=== PATIENT | female | born 1940 | race Caucasian/White ===

== ENCOUNTER 2017-03-15 17:36 | Emergency (ER) | payer MEDICARE ==
[~2017-03-15] VITALS: Ht 157.5 cm; Wt 77.1 kg
[~2017-03-15 17:36] MED LIST: ALBU0.63 NEB; ALBU8.5H3 INH; ALBU8.5H5 INH; ALPR0.257 PO; APIX5TAB PO; Alprazolam PO; CEFD300C37 PO; FLUT1DIS3 INH; GUAI-103 PO; GUAI400T26 PO; GUAI600T22 PO; HYDR-3138 PO; HYDR473S55 PO; LEVO150T5 PO; LEVO500T8 PO; LEVO750T26 PO; LEVO75CA2 PO; LISI-170 PO; METH4TAB2 PO; MONT10TA6 PO; NYST1000 PO; POTA20PA PO; PRED10TA PO; PRED20TA PO; PRED50TA PO; PRED5TAB PO; PREG150C PO; PROP10TA NG; RANI300C PO; SIMV40TA3 PO; TIOT18CA INH; WARF5TAB PO; WARF5TAB7 PO; ZOLP10TA3 PO
[2017-03-15] MEDS ORDERED: SODIUM CHLORIDE 0.9% 1,000 ML IV ONE (18:07)
[2017-03-15] MEDS ORDERED: ONDANSETRON 2MG/ML, 2ML IVPush ONE (18:30)
[2017-03-15] MEDS ORDERED: SODIUM CHLORIDE 0.9% 1,000ML IVBOLUS ONE (18:30)
[2017-03-15] MEDS ORDERED: SODIUM CHLORIDE FLUSH 10ML SYR IVF ONE (18:30)
[2017-03-15] MEDS ORDERED: ONDANSETRON 2MG/ML, 2ML ONE (18:39)
[2017-03-15 18:50] LABS: ASPARTATE AMINO TRANSFERASE 19 U/L (15-37); BLOOD UREA NITROGEN 12 mg/dL (7-18)
[2017-03-15 18:55] LABS: IS PT STATUS REG ER OR PRE ER? YES
[2017-03-15 19:45] LABS: PATH.CAST-FLAG NOT PRESENT; SPERM-FLAG NOT PRESENT; SRC-FLAG NOT PRESENT; XTAL-FLAG NOT PRESENT; YLC-FLAG NOT PRESENT
[2017-03-15 20:24] VITALS: BP 127/75
== END 2017-03-15 20:35 | disposition home or self-care (01) ==
LOC: ED 20:00
DX: K85.00 Idiopathic acute pancreatitis without necrosis or infection (principal); R10.13 Epigastric pain; J44.9 Chronic obstructive pulmonary disease, unspecified; K21.9 Gastro-esophageal reflux disease without esophagitis; I11.0 Hypertensive heart disease with heart failure; I50.9 Heart failure, unspecified; E11.9 Type 2 diabetes mellitus without complications; E05.90 Thyrotoxicosis, unspecified without thyrotoxic crisis or storm; Z90.10 Acquired absence of unspecified breast and nipple
CPT/HCPCS: 36415; 74022; 80053; 81001; 82962; 83605; 83690; 84484; 85025; 85610; 87086; 93005; 96361; 96374; 99285; J2405; J7030

== ENCOUNTER 2017-04-23 21:54 | Emergency (ER) | payer MEDICARE ==
[~2017-04-23] VITALS: Ht 157.5 cm; Wt 74.0 kg
[2017-04-23] MEDS ORDERED: HYDROcodone/APAP 5/325 TABLET ONE (22:41)
[2017-04-23] MEDS ORDERED: HYDROcodone/APAP 5/325 TABLET PO ONE (23:00)
[2017-04-23 23:16] VITALS: BP 121/71
== END 2017-04-23 23:18 | disposition home or self-care (01) ==
LOC: ED 22:59
DX: M25.572 Pain in left ankle and joints of left foot (principal); Z90.89 Acquired absence of other organs; E11.9 Type 2 diabetes mellitus without complications; E78.5 Hyperlipidemia, unspecified; I10 Essential (primary) hypertension; Z86.718 Personal history of other venous thrombosis and embolism
CPT/HCPCS: 36415; 85025

== ENCOUNTER 2017-04-29 20:44 | Inpatient (IN) | payer MEDICARE ==
[~2017-04-29] VITALS: Ht 157.5 cm; Wt 82.4 kg
[2017-04-29] MEDS ORDERED: SODIUM CHLORIDE 0.9% 1,000ML IVBOLUS ONE ×2 (22:00→23:00)
[2017-04-29] MEDS ORDERED: ONDANSETRON 2MG/ML, 2ML IVPush ONE ×2 (22:00→23:00)
[2017-04-29] MEDS ORDERED: SODIUM CHLORIDE FLUSH 10ML SYR IVF ONE (22:00)
[2017-04-29 22:04] LABS: ASPARTATE AMINO TRANSFERASE 20 U/L (15-37); BLOOD UREA NITROGEN 19 mg/dL (7-18)
[2017-04-29] MEDS ORDERED: ONDANSETRON 2MG/ML, 2ML ONE (22:53)
[2017-04-29] MEDS ORDERED: MORPHINE SULFATE 4 MG/ML, 1ML IVPush PRN (23:00)
[2017-04-29] MEDS ORDERED: LEVO112T4 PO (23:06)
[2017-04-29] MEDS ORDERED: MORPHINE SULFATE 4 MG/ML, 1ML ONE (23:28)
[2017-04-30] MEDS ORDERED: OMNIPAQUE 350 MG/ML, 100ML BOTTLE ONE (00:16)
[2017-04-30] MEDS ORDERED: SODIUM CHLORIDE 0.9% 1,000 ML IV ONE (02:09)
[2017-04-30] MEDS ORDERED: ONDANSETRON 2MG/ML, 2ML IVPush PRN ×2 (02:30→07:30)
[2017-04-30] MEDS ORDERED: MORPHINE SULFATE 4 MG/ML, 1ML IVPush PRN (02:30)
[2017-04-30 03:17] VITALS: BP 106/46
[2017-04-30] MEDS ORDERED: PROMETHAZINE 25 MG/ML, 1ML IM PRN (07:30)
[2017-04-30] MEDS ORDERED: hydrALAzine 20 MG/ML, 1ML IVPush PRN (07:30)
[2017-04-30] MEDS ORDERED: BISACODYL 10 MG SUPP PR PRN (07:30)
[2017-04-30] MEDS ORDERED: METOCLOPRAMIDE 5 MG/ML, 2ML IVPush PRN (07:30)
[2017-04-30] MEDS ORDERED: ACETAMINOPHEN 325 MG TABLET PO PRN (07:30)
[2017-04-30] MEDS ORDERED: TRAZODONE 50MG TABLET PO PRN (07:30)
[2017-04-30 07:59] VITALS: BP 108/56
[2017-04-30] MEDS ORDERED: LEVOTHYROXINE 112 MCG TABLET PO SCH (09:00)
[2017-04-30] MEDS: MONTELUKAST 10 MG TABLET PO SCH (09:37)
[2017-04-30] MEDS: PREGABALIN 150 MG CAPSULE PO SCH ×2 (09:37→22:19)
[2017-04-30] MEDS: PROPRANOLOL 10 MG TABLET PO SCH ×2 (09:37→21:00)
[2017-04-30] MEDS: morphine SULFATE 10 MG/ML, 1ML IVPush PRN ×3 (11:46→23:52)
[2017-04-30 14:48] VITALS: BP 98/67
[2017-04-30] MEDS: FLUTICASONE/VILANTEROL 100-25MCG/INH INH SCH (15:58)
[2017-04-30] MEDS: POTASSIUM CHLORIDE 20 MEQ in LACTATED RINGERS 1,000 ML IV SCH (15:58)
[2017-04-30] MEDS: HYDROcodone/APAP 5/325 TABLET PO PRN (17:42)
[2017-04-30] MEDS ORDERED: WARFARIN 5 MG TABLET PO-COUM SCH (18:00)
[2017-04-30 19:04] VITALS: BP 98/61
[2017-04-30] MEDS ORDERED: SODIUM CHLORIDE 0.9% 1,000ML IVBOLUS ONE (22:00)
[2017-05-01 02:23] VITALS: BP 118/61
[2017-05-01] MEDS: POTASSIUM CHLORIDE 20 MEQ in LACTATED RINGERS 1,000 ML IV SCH (03:10)
[2017-05-01 05:03] LABS: BLOOD UREA NITROGEN 9 mg/dL (7-18)
[2017-05-01 05:11] LABS: ASPARTATE AMINO TRANSFERASE 16 U/L (15-37)
[2017-05-01 07:21] VITALS: BP 104/66
[2017-05-01] MEDS: PREGABALIN 150 MG CAPSULE PO SCH ×2 (09:47→21:29)
[2017-05-01] MEDS: MONTELUKAST 10 MG TABLET PO SCH (09:47)
[2017-05-01] MEDS: FLUTICASONE/VILANTEROL 100-25MCG/INH INH SCH (09:48)
[2017-05-01] MEDS: PROPRANOLOL 10 MG TABLET PO SCH ×2 (09:48→21:33)
[2017-05-01] MEDS: LEVOTHYROXINE 75 MCG TABLET PO SCH (09:50)
[2017-05-01] MEDS ORDERED: ALBUTEROL SULFATE 2.5 MG/3 ML NPPB PRN (10:30)
[2017-05-01] MEDS ORDERED: ALBUTEROL SULFATE 2.5 MG/3 ML ONE (10:30)
[2017-05-01 13:09] VITALS: BP 94/60
[2017-05-01] MEDS ORDERED: WARFARIN 5 MG TABLET PO-COUM ONE (18:00)
[2017-05-01 19:13] VITALS: BP 122/74
[2017-05-01 21:34] VITALS: BP 121/63
[2017-05-01] MEDS: HYDROcodone/APAP 5/325 TABLET PO PRN (22:42)
[2017-05-02 01:26] VITALS: BP 120/59
[2017-05-02 05:24] LABS: BLOOD UREA NITROGEN 10 mg/dL (7-18)
[2017-05-02] MEDS: HYDROcodone/APAP 5/325 TABLET PO PRN ×3 (05:52→20:40)
[2017-05-02] MEDS: LEVOTHYROXINE 75 MCG TABLET PO SCH (06:10)
[2017-05-02 08:32] VITALS: BP 109/53
[2017-05-02] MEDS: FLUTICASONE/VILANTEROL 100-25MCG/INH INH SCH (08:37)
[2017-05-02] MEDS: PROPRANOLOL 10 MG TABLET PO SCH ×2 (08:39→20:40)
[2017-05-02] MEDS: PREGABALIN 150 MG CAPSULE PO SCH ×2 (08:39→20:40)
[2017-05-02] MEDS: MONTELUKAST 10 MG TABLET PO SCH (08:39)
[2017-05-02 13:33] VITALS: BP 108/72
[2017-05-02] MEDS ORDERED: WARFARIN 5 MG TABLET PO-COUM ONE (15:00)
[2017-05-02] MEDS: SODIUM CHLORIDE 0.9% 1,000 ML IV SCH ×2 (15:29→23:30)
[2017-05-02] MEDS: morphine SULFATE 10 MG/ML, 1ML IVPush PRN (17:44)
[2017-05-02 18:22] VITALS: BP 113/68
[2017-05-03 01:18] VITALS: BP 131/79
[2017-05-03] MEDS: HYDROcodone/APAP 5/325 TABLET PO PRN (05:39)
[2017-05-03] MEDS: LEVOTHYROXINE 75 MCG TABLET PO SCH (05:40)
[2017-05-03 05:59] LABS: BLOOD UREA NITROGEN 9 mg/dL (7-18)
[2017-05-03 06:08] LABS: ASPARTATE AMINO TRANSFERASE 17 U/L (15-37)
[2017-05-03 07:44] VITALS: BP 162/76
[2017-05-03] MEDS: FLUTICASONE/VILANTEROL 100-25MCG/INH INH SCH (08:42)
[2017-05-03] MEDS: PREGABALIN 150 MG CAPSULE PO SCH ×2 (08:42→20:05)
[2017-05-03] MEDS: MONTELUKAST 10 MG TABLET PO SCH (08:42)
[2017-05-03] MEDS: PROPRANOLOL 10 MG TABLET PO SCH ×2 (08:42→20:05)
[2017-05-03] MEDS: SODIUM CHLORIDE 0.9% 1,000 ML IV SCH ×2 (08:42→20:33)
[2017-05-03] MEDS: morphine SULFATE 10 MG/ML, 1ML IVPush PRN ×4 (13:22→20:00)
[2017-05-03] MEDS ORDERED: MORPHINE SULFATE 4 MG/ML, 1ML ONE (13:58)
[2017-05-03 14:21] VITALS: BP 123/65
[2017-05-03] MEDS ORDERED: WARFARIN 2.5 MG TABLET PO-COUM ONE (18:00)
[2017-05-03] MEDS ORDERED: ACETAMINOPHEN 325 MG TABLET PO PRN (19:30)
[2017-05-03] MEDS ORDERED: BISACODYL 10 MG SUPP PR PRN (19:30)
[2017-05-03 20:04] VITALS: BP 160/79
[2017-05-04 02:07] VITALS: BP 126/73
[2017-05-04] MEDS: morphine SULFATE 10 MG/ML, 1ML IVPush PRN ×3 (02:24→12:52)
[2017-05-04] MEDS: SODIUM CHLORIDE 0.9% 1,000 ML IV SCH ×3 (04:20→20:00)
[2017-05-04] MEDS: LEVOTHYROXINE 75 MCG TABLET PO SCH (04:27)
[2017-05-04 06:03] LABS: BLOOD UREA NITROGEN 6 mg/dL (7-18)
[2017-05-04 07:30] VITALS: BP 128/79
[2017-05-04] MEDS: MONTELUKAST 10 MG TABLET PO SCH (09:10)
[2017-05-04] MEDS: FLUTICASONE/VILANTEROL 100-25MCG/INH INH SCH (09:10)
[2017-05-04] MEDS: PREGABALIN 150 MG CAPSULE PO SCH ×2 (09:10→21:36)
[2017-05-04] MEDS: PROPRANOLOL 10 MG TABLET PO SCH ×2 (09:10→21:36)
[2017-05-04 12:33] VITALS: BP 118/81
[2017-05-04] MEDS ORDERED: WARFARIN 2.5 MG TABLET PO-COUM SCH (18:00)
[2017-05-04] MEDS: HYDROcodone/APAP 10/325 MG TABLET PO PRN (18:02)
[2017-05-04 20:00] VITALS: BP 113/56
[2017-05-04 21:37] VITALS: BP 120/66
[2017-05-05] MEDS: HYDROcodone/APAP 10/325 MG TABLET PO PRN ×4 (01:15→22:46)
[2017-05-05 02:27] VITALS: BP 124/65
[2017-05-05] MEDS: SODIUM CHLORIDE 0.9% 1,000 ML IV SCH ×3 (04:00→20:00)
[2017-05-05 05:58] LABS: BLOOD UREA NITROGEN 7 mg/dL (7-18)
[2017-05-05] MEDS: LEVOTHYROXINE 75 MCG TABLET PO SCH (06:04)
[2017-05-05 08:27] VITALS: BP 111/71
[2017-05-05] MEDS: MONTELUKAST 10 MG TABLET PO SCH (09:37)
[2017-05-05] MEDS: PREGABALIN 150 MG CAPSULE PO SCH ×2 (09:37→22:46)
[2017-05-05] MEDS: PROPRANOLOL 10 MG TABLET PO SCH ×2 (09:37→22:46)
[2017-05-05] MEDS: FLUTICASONE/VILANTEROL 100-25MCG/INH INH SCH (09:37)
[2017-05-05 13:02] VITALS: BP 100/59
[2017-05-05 20:00] VITALS: BP 118/79
[2017-05-06 01:47] VITALS: BP 110/71
[2017-05-06] MEDS: SODIUM CHLORIDE 0.9% 1,000 ML IV SCH ×3 (04:00→20:00)
[2017-05-06] MEDS: LEVOTHYROXINE 75 MCG TABLET PO SCH (06:29)
[2017-05-06 08:37] VITALS: BP 114/64
[2017-05-06] MEDS: FLUTICASONE/VILANTEROL 100-25MCG/INH INH SCH (09:53)
[2017-05-06] MEDS: MONTELUKAST 10 MG TABLET PO SCH (09:53)
[2017-05-06] MEDS: PROPRANOLOL 10 MG TABLET PO SCH ×2 (09:53→20:40)
[2017-05-06] MEDS: PREGABALIN 150 MG CAPSULE PO SCH ×2 (09:53→20:41)
[2017-05-06] MEDS: HYDROcodone/APAP 10/325 MG TABLET PO PRN ×3 (09:54→18:25)
[2017-05-06 13:25] VITALS: BP 102/69
[2017-05-06] MEDS ORDERED: WARFARIN 3 MG TABLET PO-COUM ONE (18:00)
[2017-05-06 19:09] VITALS: BP 91/54
[2017-05-07 00:56] VITALS: BP 91/50
[2017-05-07] MEDS: SODIUM CHLORIDE 0.9% 1,000 ML IV SCH (04:00)
[2017-05-07] MEDS: LEVOTHYROXINE 75 MCG TABLET PO SCH (06:11)
[2017-05-07] MEDS: HYDROcodone/APAP 10/325 MG TABLET PO PRN (06:12)
[2017-05-07 08:10] VITALS: BP 115/69
[2017-05-07] MEDS: FLUTICASONE/VILANTEROL 100-25MCG/INH INH SCH (08:42)
[2017-05-07] MEDS: PREGABALIN 150 MG CAPSULE PO SCH (08:43)
[2017-05-07] MEDS: PROPRANOLOL 10 MG TABLET PO SCH (08:43)
[2017-05-07] MEDS: MONTELUKAST 10 MG TABLET PO SCH (08:43)
[2017-05-07] MEDS ORDERED: LEVO75TA PO (10:47)
[2017-05-07 12:48] VITALS: BP 116/74
[2017-05-07] MEDS ORDERED: WARF5TAB7 PO (13:46)
[2017-05-07] MEDS ORDERED: WARF2TAB7 PO (13:47)
[2017-05-07] MEDS ORDERED: WARFARIN 2 MG TABLET PO-COUM SCH (18:00)
== END 2017-05-07 13:56 | disposition home or self-care (01) | DRG 438 ==
LOC: ED 22:26 → EDIP 04-30 02:09 → 4NOR 04-30 03:25 → DCLOUNGE 05-07 13:35
PROVIDERS: ADMIT Internal Medicine; ATTEND Family Medicine
DX: K85.90 Acute pancreatitis without necrosis or infection, unspecified (principal); E43 Unspecified severe protein-calorie malnutrition; D68.59 Other primary thrombophilia; E03.9 Hypothyroidism, unspecified; E11.9 Type 2 diabetes mellitus without complications; E78.5 Hyperlipidemia, unspecified; F41.1 Generalized anxiety disorder; I11.0 Hypertensive heart disease with heart failure; I50.9 Heart failure, unspecified; J44.9 Chronic obstructive pulmonary disease, unspecified; K21.9 Gastro-esophageal reflux disease without esophagitis; K57.90 Diverticulosis of intestine, part unspecified, without perforation or abscess without bleeding; G89.29 Other chronic pain; R09.02 Hypoxemia; M79.7 Fibromyalgia; Z79.01 Long term (current) use of anticoagulants; Z86.711 Personal history of pulmonary embolism; Z86.718 Personal history of other venous thrombosis and embolism; Z68.33 Body mass index [BMI] 33.0-33.9, adult; Z88.0 Allergy status to penicillin; Z87.01 Personal history of pneumonia (recurrent); Z90.49 Acquired absence of other specified parts of digestive tract; Z90.89 Acquired absence of other organs; Z90.12 Acquired absence of left breast and nipple; Z79.899 Other long term (current) drug therapy; Z79.51 Long term (current) use of inhaled steroids; I25.2 Old myocardial infarction; Z87.440 Personal history of urinary (tract) infections
CPT/HCPCS: 36415; 71020; 74177; 74181; 76700; 80048; 80053; 80061; 81003; 82150; 82962; 83690; 83735; 84100; 84439; 84443; 85025; 85610; 93005; 94640; 96361; 96374; 96375; J2405; J3480; J7613; Q9967; J2270; J7030; J7120

== ENCOUNTER 2017-08-26 03:50 | Emergency (ER) | payer MEDICARE ==
[~2017-08-26] VITALS: Ht 157.5 cm; Wt 78.7 kg
[~2017-08-26 03:50] MED LIST changes: -ALBU8.5H3 INH; +ALBU8.5H8 INH; -GUAI400T26 PO; +GUAI400T66 PO; -GUAI600T22 PO; +GUAI600T31 PO; -HYDR-3138 PO; +HYDR-3237 PO; +LEVO112T4 PO; +LEVO75TA PO; +WARF2TAB7 PO
[2017-08-26] MEDS ORDERED: ONDANSETRON ODT 4 MG ONE (04:14)
[2017-08-26] MEDS ORDERED: ONDANSETRON ODT 4 MG PO ONE (04:30)
[2017-08-26 05:37] VITALS: BP 103/53
== END 2017-08-26 05:39 | disposition home or self-care (01) ==
LOC: ED 05:33
DX: S06.0X0A Concussion without loss of consciousness, initial encounter (principal); E03.9 Hypothyroidism, unspecified; I11.0 Hypertensive heart disease with heart failure; I50.9 Heart failure, unspecified; E11.9 Type 2 diabetes mellitus without complications; E78.5 Hyperlipidemia, unspecified; J44.9 Chronic obstructive pulmonary disease, unspecified; K21.9 Gastro-esophageal reflux disease without esophagitis; M79.7 Fibromyalgia; W22.8XXA Striking against or struck by other objects, initial encounter; Y93.89 Activity, other specified; Y92.098 Other place in other non-institutional residence as the place of occurrence of the external cause; Y99.8 Other external cause status; Z86.718 Personal history of other venous thrombosis and embolism
CPT/HCPCS: 36415; 70450; 85610; 99285; Q0162

== ENCOUNTER 2018-01-03 19:46 | Inpatient (IN) | payer MEDICARE ==
[~2018-01-03] VITALS: Ht 154.9 cm; Wt 83.1 kg
[~2018-01-03 19:46] MED LIST changes: +WARF-36 PO; -WARF5TAB7 PO
[2018-01-03] MEDS ORDERED: SODIUM CHLORIDE FLUSH 10ML SYR IVF ONE ×2 (21:00→22:00)
[2018-01-03] MEDS: ALBUTEROL/IPRATROPIUM 2.5MG/0.5MG, 3 ML NPPB SCH ×3 (21:05→23:00)
[2018-01-03] MEDS ORDERED: ALBUTEROL/IPRATROPIUM 2.5MG/0.5MG, 3 ML ONE ×2 (21:05→23:05)
[2018-01-03 21:06] LABS: BASOPHILS # (AUTO) 0.04 x10^3/uL (0-0.1); BASOPHILS % (AUTO) 1 % (0-1); EOSINOPHILS # (AUTO) 0.03 x10^3/uL (0-0.4); EOSINOPHILS % (AUTO) 1 % (1-7); LYMPHOCYTES # (AUTO) 2.15 x10^3/uL (1-3.4); LYMPHOCYTES % (AUTO) 44 % (22-44); MD NO; MEAN CORPUSCULAR HEMOGLOBIN 27.4 pg (27.0-34.8); MEAN CORPUSCULAR HGB CONC 32.9 g/dL (32.4-35.8); MEAN CORPUSCULAR VOLUME 83.1 fL (80-100); MEAN PLATELET VOLUME 9.3 fL (7.4-10.4); MONOCYTES # (AUTO) 0.49 x10^3/uL (0.2-0.8); MONOCYTES % (AUTO) 10 % (2-9); NEUTROPHILS # (AUTO) 2.24 x10^3/uL (1.8-6.8); NEUTROPHILS % (AUTO) 45 % (42-75); PLATELET COUNT 196 x10^3/uL (130-400); RED BLOOD COUNT 4.84 x10^6/uL (3.82-5.3); RED CELL DISTRIBUTION WIDTH 17.5 % (9.6-15.2)
[2018-01-03 21:18] LABS: ALANINE AMINOTRANSFERASE 36 U/L (12-78); ALBUMIN 3.3 g/dL (3.4-5.0); ANION GAP 9 mmol/L (5-15); CALCIUM 8.5 mg/dL (8.5-10.1); CHLORIDE 107 mmol/L (98-107)
[2018-01-03 21:23] LABS: ALKALINE PHOSPHATASE 88 U/L (45-117); BILIRUBIN,TOTAL 0.3 mg/dL (0.2-1.0); TOTAL PROTEIN 6.7 g/dL (6.4-8.2); TROPONIN I < 0.015 ng/mL (0.000-0.045)
[2018-01-03] MEDS ORDERED: AZITHROMYCIN 500 MG in SODIUM CHLORIDE 0.9% 250 ML IVPB ONE (22:00)
[2018-01-03] MEDS ORDERED: CEFTRIAXONE PMX 1GM/50ML 50 ML IVPB ONE (22:00)
[2018-01-03] MEDS ORDERED: LEVO50TA5 PO (22:20)
[2018-01-03] MEDS ORDERED: SODIUM CHLORIDE 0.9% 1,000 ML IV SCH (22:37)
[2018-01-03] MEDS ORDERED: ONDANSETRON 2MG/ML, 2ML IVPush PRN (23:00)
[2018-01-03] MEDS ORDERED: TEMPLATE NON-FORMULARY MED. (Albuterol Sulfate** (Albuterol Sulfate Hfa**) 2 PUFF(S)) INH PRN (23:00)
[2018-01-03] MEDS: ENOXAPARIN 40 MG/0.4 ML SQ SCH (23:00)
[2018-01-03] MEDS ORDERED: ALBUTEROL SULFATE 2.5 MG/3 ML NPPB PRN (23:00)
[2018-01-03] MEDS: methylPREDNISolone SOD SUCC 40 MG/ML IV SCH (23:00)
[2018-01-03] MEDS ORDERED: ACETAMINOPHEN 325 MG TABLET PO PRN (23:00)
[2018-01-03] MEDS ORDERED: CEFTRIAXONE PMX 1GM/50ML 50 ML ONE (23:03)
[2018-01-03 23:36] LABS: INTERNATIONAL NORMALIZED RATIO 1.94 (0.93-1.1); PROTHROMBIN TIME 19.9 Seconds (9.6-11.5)
[2018-01-04 01:07] VITALS: BP 104/62
[2018-01-04] MEDS: GUAIFENESIN 200 MG TABLET PO SCH ×5 (01:29→20:44)
[2018-01-04] MEDS ORDERED: WARFARIN 2.5 MG TABLET PO-COUM ONE (02:10)
[2018-01-04] MEDS: PREGABALIN 150 MG CAPSULE PO SCH ×3 (02:11→20:44)
[2018-01-04] MEDS: ALBUTEROL/IPRATROPIUM 2.5MG/0.5MG, 3 ML NPPB SCH ×6 (03:00→23:05)
[2018-01-04 08:25] VITALS: BP 118/74
[2018-01-04] MEDS: DOXYCYCLINE 100MG TABLET PO SCH ×2 (08:30→20:44)
[2018-01-04] MEDS: PROPRANOLOL 10 MG TABLET PO SCH ×2 (08:30→20:44)
[2018-01-04] MEDS: methylPREDNISolone SOD SUCC 40 MG/ML IV SCH ×3 (08:31→22:34)
[2018-01-04] MEDS: MONTELUKAST 10 MG TABLET PO SCH (08:31)
[2018-01-04] MEDS ORDERED: PROPRANOLOL 10 MG TABLET NG SCH (09:00)
[2018-01-04] MEDS ORDERED: PREGABALIN 150 MG CAPSULE PO SCH (09:00)
[2018-01-04] MEDS: FLUTICASONE/VILANTEROL 100-25MCG/INH INH SCH (09:33)
[2018-01-04 13:54] VITALS: BP 126/72
[2018-01-04] MEDS ORDERED: OXYcodone/APAP 7.5/325MG TABLET PO PRN (17:00)
[2018-01-04] MEDS ORDERED: WARFARIN 5 MG TABLET PO-COUM SCH (18:00)
[2018-01-04 19:33] VITALS: BP 122/72
[2018-01-04] MEDS: ENOXAPARIN 40 MG/0.4 ML SQ SCH (22:35)
[2018-01-05 01:38] VITALS: BP 128/78
[2018-01-05] MEDS: ALBUTEROL/IPRATROPIUM 2.5MG/0.5MG, 3 ML NPPB SCH ×4 (02:56→14:18)
[2018-01-05] MEDS: GUAIFENESIN 200 MG TABLET PO SCH ×2 (05:05→12:55)
[2018-01-05 05:06] LABS: BASOPHILS % (AUTO) 0 % (0-1); EOSINOPHILS % (AUTO) 0 % (1-7); LYMPHOCYTES # (AUTO) 1.44 x10^3/uL (1-3.4); LYMPHOCYTES % (AUTO) 25 % (22-44); MD NO; MEAN CORPUSCULAR HEMOGLOBIN 27.5 pg (27.0-34.8); MEAN CORPUSCULAR HGB CONC 32.8 g/dL (32.4-35.8); MEAN CORPUSCULAR VOLUME 83.8 fL (80-100); MEAN PLATELET VOLUME 9.4 fL (7.4-10.4); MONOCYTES # (AUTO) 0.28 x10^3/uL (0.2-0.8); MONOCYTES % (AUTO) 5 % (2-9); NEUTROPHILS # (AUTO) 4.06 x10^3/uL (1.8-6.8); NEUTROPHILS % (AUTO) 70 % (42-75); PLATELET COUNT 217 x10^3/uL (130-400); RED BLOOD COUNT 4.87 x10^6/uL (3.82-5.3); RED CELL DISTRIBUTION WIDTH 17.4 % (9.6-15.2)
[2018-01-05 05:21] LABS: CHLORIDE 108 mmol/L (98-107)
[2018-01-05 05:28] LABS: ANION GAP 9 mmol/L (5-15); CALCIUM 8.9 mg/dL (8.5-10.1)
[2018-01-05 05:37] LABS: INTERNATIONAL NORMALIZED RATIO 2.5 (0.93-1.1); PROTHROMBIN TIME 25.5 Seconds (9.6-11.5)
[2018-01-05 06:45] VITALS: BP 122/70
[2018-01-05] MEDS ORDERED: OXYcodone IR 5MG TABLET PO PRN (07:30)
[2018-01-05] MEDS: PROPRANOLOL 10 MG TABLET PO SCH (07:51)
[2018-01-05] MEDS: methylPREDNISolone SOD SUCC 40 MG/ML IV SCH (07:51)
[2018-01-05] MEDS: DOXYCYCLINE 100MG TABLET PO SCH (07:51)
[2018-01-05] MEDS: PREGABALIN 150 MG CAPSULE PO SCH (07:51)
[2018-01-05] MEDS: MONTELUKAST 10 MG TABLET PO SCH (07:51)
[2018-01-05] MEDS: FLUTICASONE/VILANTEROL 100-25MCG/INH INH SCH (07:52)
[2018-01-05 12:00] VITALS: BP 138/77
[2018-01-05] MEDS ORDERED: DOXY100T PO (14:00)
[2018-01-05] MEDS ORDERED: METH4TAB2 PO (14:00)
[2018-01-05] MEDS ORDERED: WARFARIN 2.5 MG TABLET PO-COUM SCH (18:00)
== END 2018-01-05 16:36 | disposition home or self-care (01) | DRG 202 ==
LOC: ED 21:34 → SUATTDRO 22:36 → EDIP 23:05 → OBSVTOIN 23:05 → 3NE 01-04 01:02
PROVIDERS: ADMIT Hospitalist; ATTEND Hospitalist
DX: J45.901 Unspecified asthma with (acute) exacerbation (principal); J44.0 Chronic obstructive pulmonary disease with (acute) lower respiratory infection; D68.59 Other primary thrombophilia; I11.0 Hypertensive heart disease with heart failure; I50.9 Heart failure, unspecified; E11.9 Type 2 diabetes mellitus without complications; D64.9 Anemia, unspecified; E03.9 Hypothyroidism, unspecified; J44.1 Chronic obstructive pulmonary disease with (acute) exacerbation; K21.9 Gastro-esophageal reflux disease without esophagitis; F41.9 Anxiety disorder, unspecified; G47.00 Insomnia, unspecified; J20.9 Acute bronchitis, unspecified; M79.7 Fibromyalgia; R09.02 Hypoxemia; Z79.01 Long term (current) use of anticoagulants; Z80.0 Family history of malignant neoplasm of digestive organs; Z82.5 Family history of asthma and other chronic lower respiratory diseases; Z86.711 Personal history of pulmonary embolism; Z87.01 Personal history of pneumonia (recurrent); Z90.49 Acquired absence of other specified parts of digestive tract; Z90.710 Acquired absence of both cervix and uterus; Z88.0 Allergy status to penicillin
CPT/HCPCS: 36415; 71046; 80048; 80053; 83880; 84484; 85025; 85610; 87040; 93005; 94640; 96365; 96366; 96368; J0456; J0696; J1650; J2405; J7620; J2920; J7030; J7050; J7512

== ENCOUNTER 2018-05-31 11:50 | Inpatient (IN) | payer MEDICARE ==
[~2018-05-31] VITALS: Ht 154.9 cm; Wt 89.6 kg
[~2018-05-31 11:50] MED LIST changes: +ALPR0.25 PO; +ASCO10004 PO; +BIOT1CAP3 PO; +CALC1CAP8 PO; +CHOL200024 PO; +CRAN500C7 PO; +CYAN10005 PO; +DILT180C PO; +DOXY100T PO; +ENOX30SY4 SQ; +ESOM40CA PO; +FURO-93 PO; +FURO40TA6 PO; +IMIP25TA3 MT; +L.AC1CAP6 PO; +LEVO50TA5 PO; +MAGN400T36 PO; +METH500T7 PO; +OXYC15TA PO; +PANT40TA5 PO; +POTA25TA4 PO; +PREG75CA PO; +RANI150C PO; +SPIR25TA5 PO; +TAMS-11 PO; +UBID100C24 PO; -WARF2TAB7 PO; +WARF2TAB99 PO
[2018-05-31] MEDS ORDERED: WARFARIN (12:25)
[2018-05-31] MEDS ORDERED: SODIUM CHLORIDE FLUSH 10ML SYR IVF ONE (12:30)
[2018-05-31] MEDS ORDERED: SODIUM CHLORIDE 0.9% 1,000ML IVBOLUS ONE (12:30)
[2018-05-31 12:59] LABS: BASOPHILS # (AUTO) 0.12 x10^3/uL (0-0.1); BASOPHILS % (AUTO) 1 % (0-1); EOSINOPHILS # (AUTO) 0.11 x10^3/uL (0-0.4); EOSINOPHILS % (AUTO) 1 % (1-7); LYMPHOCYTES # (AUTO) 1.71 x10^3/uL (1-3.4); LYMPHOCYTES % (AUTO) 18 % (22-44); MD NO; MEAN CORPUSCULAR HGB CONC 32.6 g/dL (32.4-35.8); MEAN CORPUSCULAR VOLUME 79.9 fL (80-100); MEAN PLATELET VOLUME 9.4 fL (7.4-10.4); MONOCYTES # (AUTO) 0.72 x10^3/uL (0.2-0.8); MONOCYTES % (AUTO) 7 % (2-9); NEUTROPHILS # (AUTO) 7.05 x10^3/uL (1.8-6.8); NEUTROPHILS % (AUTO) 73 % (42-75); PLATELET COUNT 262 x10^3/uL (130-400); RED BLOOD COUNT 4.46 x10^6/uL (3.82-5.3); RED CELL DISTRIBUTION WIDTH 17.1 % (9.6-15.2)
[2018-05-31 13:09] LABS: INTERNATIONAL NORMALIZED RATIO 1.67 (0.93-1.1)
[2018-05-31 13:11] LABS: ALANINE AMINOTRANSFERASE 24 U/L (12-78); ALBUMIN 3.2 g/dL (3.4-5.0); ANION GAP 12 mmol/L (5-15); CALCIUM 8.8 mg/dL (8.5-10.1); CHLORIDE 102 mmol/L (98-107)
[2018-05-31 13:21] LABS: ALKALINE PHOSPHATASE 99 U/L (45-117); BILIRUBIN,TOTAL 0.4 mg/dL (0.2-1.0); CREATININE 2.01 mg/dL (0.55-1.02); FREE T4 (FREE THYROXINE) 1.05 ng/dL (0.76-1.46)
[2018-05-31 13:27] LABS: MICROSCOPIC INDICATED
[2018-05-31 13:28] LABS: CULTURE INDICATED? YES
[2018-05-31] MEDS ORDERED: ELLIPTA INH (15:53)
[2018-05-31] MEDS ORDERED: OXYC10TA47 PO (15:53)
[2018-05-31] MEDS ORDERED: SULF1TAB24 PO (15:53)
[2018-05-31] MEDS ORDERED: BISACODYL 10 MG SUPP PR PRN (16:00)
[2018-05-31] MEDS ORDERED: POLYETHYLENE GLYCOL 17 GM PACKET PO PRN (16:00)
[2018-05-31] MEDS ORDERED: DOCUSATE 100 MG CAPSULE PO PRN (16:00)
[2018-05-31] MEDS ORDERED: hydrALAzine 20 MG/ML, 1ML IVPush PRN (16:00)
[2018-05-31] MEDS: SODIUM CHLORIDE 0.9% 1,000 ML IV SCH ×2 (17:27→23:40)
[2018-05-31 18:18] VITALS: BP 102/46
[2018-05-31] MEDS ORDERED: ALBUTEROL SULFATE 2.5 MG/3 ML NEB PRN (18:30)
[2018-05-31] MEDS ORDERED: METHOCARBAMOL 500 MG TABLET PO PRN (18:30)
[2018-05-31] MEDS ORDERED: ALBUTEROL SULFATE INH PRN (18:30)
[2018-05-31] MEDS ORDERED: NYSTATIN 500,000 UNITS/5 ML UDC PO PRN (18:30)
[2018-05-31 19:09] VITALS: BP 112/41
[2018-05-31] MEDS ORDERED: ALBUTEROL SULFATE 2.5 MG/3 ML NPPB PRN (20:30)
[2018-05-31] MEDS: FLUTICASONE INH SCH (21:00)
[2018-05-31] MEDS: SALMETEROL INH SCH (21:00)
[2018-05-31] MEDS: BIOTIN 1 MG HOMEMEDPO SCH (21:00)
[2018-05-31] MEDS: DILTIAZEM 90 MG CAP.ER.12H PO SCH (21:00)
[2018-05-31] MEDS ORDERED: WARFARIN 10 MG TABLET PO-COUM ONE (22:00)
[2018-05-31] MEDS: HEPARIN 5,000 UNITS/ML, 1ML SQ SCH (23:36)
[2018-05-31] MEDS: FAMOTIDINE 40 MG TABLET PO SCH (23:37)
[2018-05-31] MEDS: CALCIUM/VITAMIN D3 250-125 TABLET PO SCH (23:37)
[2018-05-31] MEDS: OxyconTIN ER 10 MG TAB.ER PO SCH (23:38)
[2018-05-31] MEDS: PREGABALIN 75 MG CAPSULE PO SCH (23:38)
[2018-05-31] MEDS: MONTELUKAST 10 MG TABLET PO SCH (23:38)
[2018-05-31 23:40] VITALS: BP 102/45
[2018-06-01] VITALS: BP 102/45
[2018-06-01 04:57] LABS: INTERNATIONAL NORMALIZED RATIO 1.98 (0.93-1.1); PROTHROMBIN TIME 20.1 Seconds (9.6-11.5)
[2018-06-01 05:01] LABS: ALBUMIN 2.7 g/dL (3.4-5.0); ANION GAP 6 mmol/L (5-15); CALCIUM 8.1 mg/dL (8.5-10.1); CHLORIDE 110 mmol/L (98-107)
[2018-06-01 05:06] LABS: % IRON SATURATION 6 % (20-55); ALANINE AMINOTRANSFERASE 23 U/L (12-78); ALKALINE PHOSPHATASE 88 U/L (45-117); BILIRUBIN,TOTAL 0.4 mg/dL (0.2-1.0); CHOL/HDL RATIO 3.2; CHOLESTEROL, TOTAL 132 mg/dL (140-239); CREATININE 1.11 mg/dL (0.55-1.02); HDL CHOL % 31 % (28-40); HDL CHOLESTEROL (DIRECT) 41 mg/dL (40-60); IRON LEVEL 21 mcg/dL (50-170); LDL CHOLESTEROL,CALCULATED 72 mg/dL (54-169); LDL/HDL RATIO 1.8 (0.5-3.0); TOTAL IRON BINDING CAPACITY 339 mcg/dL (250-450); TOTAL PROTEIN 5.9 g/dL (6.4-8.2); TRIGLYCERIDES 93 mg/dL (50-200); VLDL CHOLESTEROL 19 mg/dL (0-25)
[2018-06-01 05:08] LABS: BASOPHILS # (AUTO) 0.04 x10^3/uL (0-0.1); BASOPHILS % (AUTO) 1 % (0-1); EOSINOPHILS # (AUTO) 0.22 x10^3/uL (0-0.4); EOSINOPHILS % (AUTO) 3 % (1-7); LYMPHOCYTES # (AUTO) 2.12 x10^3/uL (1-3.4); LYMPHOCYTES % (AUTO) 32 % (22-44); MD NO; MEAN CORPUSCULAR HEMOGLOBIN 25.7 pg (27.0-34.8); MEAN CORPUSCULAR HGB CONC 32.4 g/dL (32.4-35.8); MEAN CORPUSCULAR VOLUME 79.3 fL (80-100); MEAN PLATELET VOLUME 9.4 fL (7.4-10.4); MONOCYTES % (AUTO) 8 % (2-9); NEUTROPHILS % (AUTO) 57 % (42-75); PLATELET COUNT 230 x10^3/uL (130-400); RED BLOOD COUNT 3.96 x10^6/uL (3.82-5.3); RED CELL DISTRIBUTION WIDTH 17.1 % (9.6-15.2)
[2018-06-01 05:43] LABS: AMPHETAMINE SCREEN, URINE Negative (Negative); BARBITURATE SCREEN, URINE Negative (Negative); BENZODIAZEPINE SCREEN, URINE Negative (Negative); CANNABINOID SCREEN, URINE Negative (Negative); CHLORIDE,URINE RANDOM 90 mmol/L; COCAINE SCREEN, URINE Negative (Negative); METHADONE SCREEN, URINE Negative (Negative); OPIATE SCREEN, URINE Positive (Negative); POTASSIUM,URINE RANDOM 39 mmol/L; SODIUM,URINE RANDOM 80 mmol/L
[2018-06-01 08:01] VITALS: BP 107/53
[2018-06-01] MEDS: BIOTIN 1 MG HOMEMEDPO SCH ×2 (09:00→21:00)
[2018-06-01] MEDS: SALMETEROL INH SCH ×2 (09:00→21:00)
[2018-06-01] MEDS: FLUTICASONE INH SCH ×2 (09:00→21:00)
[2018-06-01] MEDS: Tiotropium Bromide** (Spiriva**) 18 MCG INH SCH (09:00)
[2018-06-01] MEDS ORDERED: CHOLECALCIFEROL 1,000 UNIT TABLET PO SCH (09:00)
[2018-06-01] MEDS ORDERED: ASCORBIC ACID 500 MG TABLET PO SCH (09:00)
[2018-06-01] MEDS ORDERED: CYANOCOBALAMIN 1,000 MCG TABLET PO SCH (09:00)
[2018-06-01] MEDS: TAMSULOSIN 0.4 MG CAP.ER.24H PO SCH (09:00)
[2018-06-01] MEDS: PANTOPROZOLE 40MG TABLET PO SCH (09:32)
[2018-06-01] MEDS: MAGNESIUM OXIDE 400 MG TABLET PO SCH (09:32)
[2018-06-01] MEDS: DILTIAZEM 90 MG CAP.ER.12H PO SCH ×2 (09:32→21:00)
[2018-06-01] MEDS: PREGABALIN 75 MG CAPSULE PO SCH ×2 (09:32→21:43)
[2018-06-01] MEDS: LACTOBACILLUS CHEW TABLET PO SCH (09:32)
[2018-06-01] MEDS: CALCIUM/VITAMIN D3 250-125 TABLET PO SCH (09:32)
[2018-06-01] MEDS: LEVOTHYROXINE 50 MCG TABLET PO SCH (09:32)
[2018-06-01] MEDS: OxyconTIN ER 10 MG TAB.ER PO SCH ×2 (09:32→21:43)
[2018-06-01] MEDS: SODIUM CHLORIDE 0.9% 1,000 ML IV SCH ×2 (09:33→15:26)
[2018-06-01] MEDS: FAMOTIDINE 40 MG TABLET PO SCH (09:36)
[2018-06-01] MEDS: HEPARIN 5,000 UNITS/ML, 1ML SQ SCH ×2 (09:41→19:24)
[2018-06-01] MEDS: ACETAMINOPHEN 325 MG TABLET PO PRN ×2 (12:36→17:07)
[2018-06-01 14:14] VITALS: BP 117/56
[2018-06-01] MEDS ORDERED: PHARMACY MAY ADJ FOR RENAL FX MC PRN (14:30)
[2018-06-01] MEDS ORDERED: AMPICILLIN/SULBACTAM 3 GM in SODIUM CHLORIDE 0.9% 100 ML IV SCH (14:30)
[2018-06-01] MEDS ORDERED: GLUCAGON 1 MG IM PRN (15:30)
[2018-06-01] MEDS ORDERED: DEXTROSE 50%, 50ML SYRINGE IVPush PRN (15:30)
[2018-06-01] MEDS ORDERED: DEXTROSE 4 GM TAB.CHEW PO PRN (15:30)
[2018-06-01] MEDS: INSULIN LISPRO 100 UNITS/ML, PEN SQ-INSULIN SCH ×2 (16:00→21:00)
[2018-06-01] MEDS ORDERED: METHOCARBAMOL 500 MG TABLET PO ONE (16:15)
[2018-06-01] MEDS ORDERED: WARFARIN 7.5 MG TABLET PO-COUM ONE (18:00)
[2018-06-01] MEDS ORDERED: GADOBUTROL 10 MMOL/10 ML VIAL ONE (18:21)
[2018-06-01 19:03] VITALS: BP 105/50
[2018-06-01] MEDS: AMPICILLIN/SULBACTAM 3 GM in SODIUM CHLORIDE 0.9% 100 ML IV SCH (19:24)
[2018-06-01] MEDS: SODIUM CHLORIDE FLUSH 10ML SYR IVF SCH (21:00)
[2018-06-01] MEDS: MONTELUKAST 10 MG TABLET PO SCH (21:43)
[2018-06-01 21:45] VITALS: BP 91/38
[2018-06-01 22:45] VITALS: BP 99/42
[2018-06-02 00:27] VITALS: BP 105/46
[2018-06-02] MEDS: SODIUM CHLORIDE 0.9% 1,000 ML IV SCH ×3 (01:00→18:31)
[2018-06-02] MEDS: AMPICILLIN/SULBACTAM 3 GM in SODIUM CHLORIDE 0.9% 100 ML IV SCH ×4 (01:55→20:18)
[2018-06-02] MEDS: HEPARIN 5,000 UNITS/ML, 1ML SQ SCH (03:55)
[2018-06-02 05:11] LABS: BASOPHILS # (AUTO) 0.03 x10^3/uL (0-0.1); BASOPHILS % (AUTO) 1 % (0-1); EOSINOPHILS % (AUTO) 6 % (1-7); LYMPHOCYTES % (AUTO) 29 % (22-44); MD NO; MEAN CORPUSCULAR HEMOGLOBIN 25.6 pg (27.0-34.8); MEAN CORPUSCULAR VOLUME 79.8 fL (80-100); MEAN PLATELET VOLUME 9.6 fL (7.4-10.4); MONOCYTES # (AUTO) 0.34 x10^3/uL (0.2-0.8); MONOCYTES % (AUTO) 7 % (2-9); NEUTROPHILS # (AUTO) 2.83 x10^3/uL (1.8-6.8); NEUTROPHILS % (AUTO) 58 % (42-75); PLATELET COUNT 240 x10^3/uL (130-400); RED CELL DISTRIBUTION WIDTH 17.5 % (9.6-15.2)
[2018-06-02 05:13] LABS: INTERNATIONAL NORMALIZED RATIO 3.14 (0.93-1.1); PROTHROMBIN TIME 31.6 Seconds (9.6-11.5)
[2018-06-02 05:23] LABS: ALBUMIN 2.3 g/dL (3.4-5.0); ANION GAP 5 mmol/L (5-15); CALCIUM 7.7 mg/dL (8.5-10.1); CHLORIDE 111 mmol/L (98-107)
[2018-06-02 05:30] LABS: CREATININE 0.83 mg/dL (0.55-1.02)
[2018-06-02] MEDS: INSULIN LISPRO 100 UNITS/ML, PEN SQ-INSULIN SCH ×4 (07:00→20:28)
[2018-06-02] MEDS ORDERED: [UNRECOGNIZED DRUG - REMARK] MC PRN (08:00)
[2018-06-02 08:08] VITALS: BP 135/80
[2018-06-02] MEDS: FLUTICASONE INH SCH ×2 (09:00→20:09)
[2018-06-02] MEDS: SODIUM CHLORIDE FLUSH 10ML SYR IVF SCH ×2 (09:00→20:18)
[2018-06-02] MEDS: SALMETEROL INH SCH ×2 (09:00→20:09)
[2018-06-02] MEDS: TAMSULOSIN 0.4 MG CAP.ER.24H PO SCH (09:00)
[2018-06-02] MEDS: Tiotropium Bromide** (Spiriva**) 18 MCG INH SCH (09:00)
[2018-06-02] MEDS: BIOTIN 1 MG HOMEMEDPO SCH ×2 (09:00→20:09)
[2018-06-02 09:02] VITALS: BP 136/71
[2018-06-02] MEDS: PREGABALIN 75 MG CAPSULE PO SCH ×2 (09:02→20:16)
[2018-06-02] MEDS: PANTOPROZOLE 40MG TABLET PO SCH (09:02)
[2018-06-02] MEDS: MAGNESIUM OXIDE 400 MG TABLET PO SCH (09:03)
[2018-06-02] MEDS: LACTOBACILLUS CHEW TABLET PO SCH (09:03)
[2018-06-02] MEDS: LEVOTHYROXINE 50 MCG TABLET PO SCH (09:03)
[2018-06-02] MEDS: OxyconTIN ER 10 MG TAB.ER PO SCH ×2 (09:03→20:17)
[2018-06-02] MEDS: DILTIAZEM 90 MG CAP.ER.12H PO SCH ×2 (10:13→20:16)
[2018-06-02 13:07] VITALS: BP 130/74
[2018-06-02 20:10] VITALS: BP 129/63
[2018-06-02] MEDS: MONTELUKAST 10 MG TABLET PO SCH (20:18)
[2018-06-03 00:59] VITALS: BP 136/69
[2018-06-03] MEDS: AMPICILLIN/SULBACTAM 3 GM in SODIUM CHLORIDE 0.9% 100 ML IV SCH ×3 (01:14→14:26)
[2018-06-03] MEDS: SODIUM CHLORIDE 0.9% 1,000 ML IV SCH ×2 (01:17→08:57)
[2018-06-03 06:19] LABS: BASOPHILS # (AUTO) 0.05 x10^3/uL (0-0.1); BASOPHILS % (AUTO) 1 % (0-1); EOSINOPHILS # (AUTO) 0.27 x10^3/uL (0-0.4); EOSINOPHILS % (AUTO) 6 % (1-7); INTERNATIONAL NORMALIZED RATIO 2.7 (0.93-1.1); LYMPHOCYTES # (AUTO) 1.82 x10^3/uL (1-3.4); LYMPHOCYTES % (AUTO) 38 % (22-44); MD NO; MEAN CORPUSCULAR HGB CONC 32.7 g/dL (32.4-35.8); MEAN CORPUSCULAR VOLUME 79.6 fL (80-100); MEAN PLATELET VOLUME 9.3 fL (7.4-10.4); MONOCYTES # (AUTO) 0.41 x10^3/uL (0.2-0.8); MONOCYTES % (AUTO) 8 % (2-9); NEUTROPHILS # (AUTO) 2.31 x10^3/uL (1.8-6.8); NEUTROPHILS % (AUTO) 48 % (42-75); PLATELET COUNT 256 x10^3/uL (130-400); PROTHROMBIN TIME 27.3 Seconds (9.6-11.5); RED CELL DISTRIBUTION WIDTH 16.6 % (9.6-15.2)
[2018-06-03 06:24] LABS: CHLORIDE 110 mmol/L (98-107)
[2018-06-03 06:31] LABS: ALBUMIN 2.6 g/dL (3.4-5.0); ANION GAP 6 mmol/L (5-15); CALCIUM 8.2 mg/dL (8.5-10.1); CREATININE 0.67 mg/dL (0.55-1.02)
[2018-06-03] MEDS: INSULIN LISPRO 100 UNITS/ML, PEN SQ-INSULIN SCH ×3 (07:00→16:00)
[2018-06-03 08:22] VITALS: BP 128/70
[2018-06-03] MEDS: OxyconTIN ER 10 MG TAB.ER PO SCH (08:58)
[2018-06-03] MEDS: MAGNESIUM OXIDE 400 MG TABLET PO SCH (08:58)
[2018-06-03] MEDS: PANTOPROZOLE 40MG TABLET PO SCH (08:58)
[2018-06-03] MEDS: TAMSULOSIN 0.4 MG CAP.ER.24H PO SCH (08:58)
[2018-06-03] MEDS: DILTIAZEM 90 MG CAP.ER.12H PO SCH (08:58)
[2018-06-03] MEDS: PREGABALIN 75 MG CAPSULE PO SCH (08:58)
[2018-06-03] MEDS: LACTOBACILLUS CHEW TABLET PO SCH (08:58)
[2018-06-03] MEDS: LEVOTHYROXINE 50 MCG TABLET PO SCH (08:58)
[2018-06-03] MEDS: SODIUM CHLORIDE FLUSH 10ML SYR IVF SCH (08:59)
[2018-06-03] MEDS: SALMETEROL INH SCH (09:00)
[2018-06-03] MEDS: Tiotropium Bromide** (Spiriva**) 18 MCG INH SCH (09:00)
[2018-06-03] MEDS: FLUTICASONE INH SCH (09:00)
[2018-06-03] MEDS: BIOTIN 1 MG HOMEMEDPO SCH (09:00)
[2018-06-03 12:15] VITALS: BP 111/53
[2018-06-03 12:45] LABS: HCT (SEDRATE) 35.1 % (34.6-47.8)
[2018-06-03] MEDS ORDERED: SODIUM CHLORIDE 0.9% 1,000 ML IV SCH (15:48)
[2018-06-03] MEDS ORDERED: WARFARIN 5 MG TABLET PO-COUM ONE (18:00)
[2018-06-03] MEDS ORDERED: METH500T7 PO (19:02)
[2018-06-03] MEDS ORDERED: AMOX1TAB64 PO (19:02)
[2018-06-03 19:24] VITALS: BP 148/73
== END 2018-06-03 20:15 | disposition home health service (06) | DRG 682 ==
LOC: ED 14:57 → EDIP 15:05 → 3NE 16:49
PROVIDERS: ADMIT Hospitalist; ATTEND Hospitalist
PROC: 0T9B70Z Drainage of Bladder with Drainage Device, Via Natural or Artificial Opening (ICD-10-PCS; principal; 2018-05-31)
DX: N17.9 Acute kidney failure, unspecified (principal); G92 Toxic encephalopathy; E87.2 Acidosis; N39.0 Urinary tract infection, site not specified; D68.59 Other primary thrombophilia; F05 Delirium due to known physiological condition; Z86.718 Personal history of other venous thrombosis and embolism; Z86.711 Personal history of pulmonary embolism; G47.00 Insomnia, unspecified; M54.5 Low back pain; R53.81 Other malaise; R70.0 Elevated erythrocyte sedimentation rate; D64.9 Anemia, unspecified; E03.9 Hypothyroidism, unspecified; E11.9 Type 2 diabetes mellitus without complications; E78.5 Hyperlipidemia, unspecified; E86.0 Dehydration; F41.1 Generalized anxiety disorder; G25.2 Other specified forms of tremor; G89.29 Other chronic pain; I11.0 Hypertensive heart disease with heart failure; I48.0 Paroxysmal atrial fibrillation; I50.9 Heart failure, unspecified; J44.9 Chronic obstructive pulmonary disease, unspecified; K21.9 Gastro-esophageal reflux disease without esophagitis; M79.7 Fibromyalgia; R62.7 Adult failure to thrive; Z79.01 Long term (current) use of anticoagulants; Z80.0 Family history of malignant neoplasm of digestive organs; Z82.5 Family history of asthma and other chronic lower respiratory diseases; Z90.710 Acquired absence of both cervix and uterus
CPT/HCPCS: 36415; 70450; 70551; 71045; 72158; 80048; 80053; 80061; 80307; 81001; 82040; 82140; 82436; 82570; 82728; 82962; 83540; 83550; 83605; 84133; 84145; 84300; 84439; 84443; 85025; 85610; 85651; 85730; 86140; 87040; 87077; 87086; 87186; 93005; 96360; 96361; A9585; J0295; J1644; J7030

== ENCOUNTER → 2018-08-12 | Outpatient (CLI) | payer MEDICARE ==
[~2018-08-12] MED LIST changes: +AMOX1TAB64 PO; +ELLIPTA INH; +OXYC10TA47 PO; -POTA20PA PO; +POTA20PA31 PO; +SULF1TAB24 PO; +WARFARIN
== END | disposition home or self-care (01) ==
LOC: CFH 12:44
PROVIDERS: ATTEND Internal Medicine Cardiovascular Disease
DX: I35.1 Nonrheumatic aortic (valve) insufficiency (principal); I35.8 Other nonrheumatic aortic valve disorders; R06.02 Shortness of breath; E11.9 Type 2 diabetes mellitus without complications; J44.9 Chronic obstructive pulmonary disease, unspecified
CPT/HCPCS: 93306

== ENCOUNTER 2018-08-28 12:45 | Emergency (ER) | payer MEDICARE ==
[~2018-08-28] VITALS: Ht 154.9 cm; Wt 83.0 kg
[2018-08-28] MEDS ORDERED: SODIUM CHLORIDE FLUSH 10ML SYR IVF ONE (13:30)
[2018-08-28 13:40] LABS: BASOPHILS # (AUTO) 0.05 x10^3/uL (0-0.1); BASOPHILS % (AUTO) 1 % (0-1); EOSINOPHILS # (AUTO) 0.19 x10^3/uL (0-0.4); EOSINOPHILS % (AUTO) 2 % (1-7); LYMPHOCYTES # (AUTO) 2.52 x10^3/uL (1-3.4); LYMPHOCYTES % (AUTO) 32 % (22-44); MD NO; MEAN CORPUSCULAR HEMOGLOBIN 24.9 pg (27.0-34.8); MEAN CORPUSCULAR HGB CONC 32.5 g/dL (32.4-35.8); MEAN CORPUSCULAR VOLUME 76.7 fL (80-100); MEAN PLATELET VOLUME 9.6 fL (7.4-10.4); MONOCYTES # (AUTO) 0.54 x10^3/uL (0.2-0.8); MONOCYTES % (AUTO) 7 % (2-9); NEUTROPHILS # (AUTO) 4.65 x10^3/uL (1.8-6.8); NEUTROPHILS % (AUTO) 59 % (42-75); PLATELET COUNT 288 x10^3/uL (130-400); RED BLOOD COUNT 5.34 x10^6/uL (3.82-5.3); RED CELL DISTRIBUTION WIDTH 16.5 % (9.6-15.2)
[2018-08-28 13:43] LABS: ALBUMIN 3.7 g/dL (3.4-5.0); ANION GAP 8 mmol/L (5-15); CHLORIDE 104 mmol/L (98-107); CREATININE 1.15 mg/dL (0.55-1.02)
[2018-08-28 14:30] LABS: CULTURE INDICATED? YES; MICROSCOPIC INDICATED
[2018-08-28] MEDS ORDERED: ONDANSETRON ODT 4 MG PO ONE (15:00)
[2018-08-28] MEDS ORDERED: HYDROmorphone 1 MG/ML, 1ML IM ONE (15:00)
[2018-08-28] MEDS ORDERED: ONDANSETRON ODT 4 MG ONE (15:07)
[2018-08-28] MEDS ORDERED: HYDROmorphone 2 MG/ML, 1ML ONE (15:07)
[2018-08-28 15:19] VITALS: BP 128/84
== END 2018-08-28 15:46 | disposition home or self-care (01) ==
LOC: ED 14:01
DX: M54.16 Radiculopathy, lumbar region (principal); N30.00 Acute cystitis without hematuria; E11.9 Type 2 diabetes mellitus without complications; I11.0 Hypertensive heart disease with heart failure; I50.9 Heart failure, unspecified; J44.9 Chronic obstructive pulmonary disease, unspecified; K21.9 Gastro-esophageal reflux disease without esophagitis; E03.9 Hypothyroidism, unspecified
CPT/HCPCS: 36415; 72110; 80048; 81001; 82040; 85025; 87077; 87086; 87186; 96372; 99285; J1170; Q0162

== ENCOUNTER 2018-09-23 13:29 | Emergency (ER) | payer MEDICARE ==
[~2018-09-23] VITALS: Ht 157.5 cm; Wt 82.0 kg
[2018-09-23] MEDS ORDERED: CEFTRIAXONE PMX 1GM/50ML 50 ML IVPB ONE (14:00)
[2018-09-23] MEDS ORDERED: ALBUTEROL/IPRATROPIUM 2.5MG/0.5MG, 3 ML NPPB ONE (14:00)
[2018-09-23] MEDS ORDERED: AZITHROMYCIN 500 MG in SODIUM CHLORIDE 0.9% 250 ML IVPB ONE (14:00)
[2018-09-23] MEDS ORDERED: ALBUTEROL/IPRATROPIUM 2.5MG/0.5MG, 3 ML ONE (14:02)
[2018-09-23 14:06] LABS: BASOPHILS # (AUTO) 0.09 x10^3/uL (0-0.1); BASOPHILS % (AUTO) 1 % (0-1); EOSINOPHILS # (AUTO) 0.09 x10^3/uL (0-0.4); EOSINOPHILS % (AUTO) 1 % (1-7); LYMPHOCYTES # (AUTO) 2.26 x10^3/uL (1-3.4); LYMPHOCYTES % (AUTO) 35 % (22-44); MD NO; MEAN CORPUSCULAR HEMOGLOBIN 24.5 pg (27.0-34.8); MEAN CORPUSCULAR HGB CONC 32.3 g/dL (32.4-35.8); MEAN PLATELET VOLUME 9.7 fL (7.4-10.4); MONOCYTES # (AUTO) 0.65 x10^3/uL (0.2-0.8); MONOCYTES % (AUTO) 10 % (2-9); NEUTROPHILS # (AUTO) 3.38 x10^3/uL (1.8-6.8); NEUTROPHILS % (AUTO) 52 % (42-75); PLATELET COUNT 282 x10^3/uL (130-400); RED BLOOD COUNT 5.43 x10^6/uL (3.82-5.3); RED CELL DISTRIBUTION WIDTH 17.3 % (9.6-15.2)
[2018-09-23 14:12] LABS: INTERNATIONAL NORMALIZED RATIO 1.21 (0.93-1.1); PROTHROMBIN TIME 12.7 Seconds (9.6-11.5)
[2018-09-23 14:13] LABS: ANION GAP 6 mmol/L (5-15); CHLORIDE 110 mmol/L (98-107)
[2018-09-23 14:14] LABS: ALANINE AMINOTRANSFERASE 25 U/L (12-78); ALBUMIN 3.5 g/dL (3.4-5.0)
[2018-09-23 14:18] LABS: ALKALINE PHOSPHATASE 145 U/L (45-117); BILIRUBIN,TOTAL 0.6 mg/dL (0.2-1.0); TOTAL PROTEIN 7.3 g/dL (6.4-8.2); TROPONIN I < 0.015 ng/mL (0.000-0.045)
[2018-09-23] MEDS ORDERED: CEFTRIAXONE PMX 1GM/50ML 50 ML ONE (14:28)
[2018-09-23 16:24] VITALS: BP 95/54
== END 2018-09-23 16:25 | disposition home or self-care (01) ==
LOC: ED 14:51
DX: J45.41 Moderate persistent asthma with (acute) exacerbation (principal); J18.1 Lobar pneumonia, unspecified organism; I50.9 Heart failure, unspecified; K21.9 Gastro-esophageal reflux disease without esophagitis; E03.9 Hypothyroidism, unspecified; E11.9 Type 2 diabetes mellitus without complications; I48.91 Unspecified atrial fibrillation; E78.5 Hyperlipidemia, unspecified; Z88.0 Allergy status to penicillin
CPT/HCPCS: 36415; 80053; 83605; 83880; 84145; 84484; 85025; 85610; 87040; 93005; 94640; 96365; 96367; 99284; J0456; J0696; J7050; J7512; J7620

== ENCOUNTER 2018-11-07 22:20 | Emergency (ER) | payer MEDICARE ==
[~2018-11-07] VITALS: Ht 154.9 cm; Wt 83.0 kg
[~2018-11-07 22:20] MED LIST changes: -PROP10TA NG; +PROP10TA16 NG
[2018-11-07 22:28] VITALS: BP 113/64
--- NOTE | 2018-11-07 22:45 | NUR ---
PT ARRIVES TO ED WITH LEFT LEG PAIN AFTER A FALL 2 WEEKS AGO. PT REPORTS THAT SHE HAS PAIN WITH WALKING. PT DOES NOT HAVING ANY SHORTENING OR ROTATION OF THE LEFT LEG. PT HAS GOOD PEDAL PULSES PRESENT. AWAITING FURTHER ORDERS.
== END 2018-11-07 23:58 | disposition home or self-care (01) ==
LOC: ED 22:38
DX: S80.02XA Contusion of left knee, initial encounter (principal); W01.0XXA Fall on same level from slipping, tripping and stumbling without subsequent striking against object, initial encounter; Y93.89 Activity, other specified; Y92.89 Other specified places as the place of occurrence of the external cause; Y99.8 Other external cause status
CPT/HCPCS: 99283

== ENCOUNTER 2018-12-20 01:31 | Observation (INO) | payer MEDICARE ==
[~2018-12-20] VITALS: Ht 157.5 cm; Wt 87.3 kg
[~2018-12-20 01:31] MED LIST changes: +ANTIBIOTIC; +FERR324T5 PO; +LEVO500T47 PO; +METH16TA PO; +METH2TAB PO; +METH32TA PO; +METH4TAB PO; +METH8TAB PO; +NITR100C PO; +OXYC5TAB3 PO; +POTA20TA89 PO; +WARF2.5T32 PO; +WARF4TAB65 PO; -WARFARIN; +WARFARIN PO
[2018-12-20] MEDS ORDERED: ONDANSETRON 2MG/ML, 2ML ONE (01:49)
[2018-12-20] MEDS ORDERED: MORPHINE SULFATE 4 MG/ML, 1ML ONE (01:49)
[2018-12-20 01:57] LABS: MEAN CORPUSCULAR HEMOGLOBIN 25.4 pg (27.0-34.8); MEAN CORPUSCULAR HGB CONC 32.6 g/dL (32.4-35.8); MEAN CORPUSCULAR VOLUME 77.8 fL (80-100); MEAN PLATELET VOLUME 9.2 fL (7.4-10.4); PLATELET COUNT 219 x10^3/uL (130-400)
[2018-12-20] MEDS ORDERED: MORPHINE SULFATE 4 MG/ML, 1ML IVPush PRN (02:00)
[2018-12-20] MEDS ORDERED: SODIUM CHLORIDE FLUSH 10ML SYR IVF ONE (02:00)
[2018-12-20] MEDS ORDERED: ONDANSETRON 2MG/ML, 2ML IVPush ONE (02:00)
[2018-12-20 02:06] LABS: ALANINE AMINOTRANSFERASE 43 U/L (12-78); ALBUMIN 3.8 g/dL (3.4-5.0); ANION GAP 6 mmol/L (5-15); CALCIUM 8.9 mg/dL (8.5-10.1); CHLORIDE 103 mmol/L (98-107); CREATININE 1.32 mg/dL (0.55-1.02)
[2018-12-20 02:07] LABS: D-DIMER < 0.19 ug/mlFEU (0.00-0.52); INTERNATIONAL NORMALIZED RATIO 2.16 (0.93-1.1)
[2018-12-20 02:10] LABS: ALKALINE PHOSPHATASE 102 U/L (45-117); BILIRUBIN,TOTAL 0.5 mg/dL (0.2-1.0); TOTAL PROTEIN 7.2 g/dL (6.4-8.2); TROPONIN I < 0.015 ng/mL (0.000-0.045)
[2018-12-20 02:14] LABS: BASOPHILS # (AUTO) 0.13 x10^3/uL (0-0.1); BASOPHILS % (AUTO) 1 % (0-1); EOSINOPHILS # (AUTO) 0.05 x10^3/uL (0-0.4); EOSINOPHILS % (AUTO) 0 % (1-7); LYMPHOCYTES % (AUTO) 13 % (22-44); MD SCAN; MONOCYTES # (AUTO) 0.65 x10^3/uL (0.2-0.8); MONOCYTES % (AUTO) 6 % (2-9); NEUTROPHILS # (AUTO) 9.57 x10^3/uL (1.8-6.8); NEUTROPHILS % (AUTO) 80 % (42-75)
[2018-12-20] MEDS ORDERED: LABETALOL 5 MG/ML SYRINGE IVPush PRN (02:30)
[2018-12-20] MEDS ORDERED: hydrALAzine 20 MG/ML, 1ML IVPush PRN (02:30)
[2018-12-20] MEDS ORDERED: PROMETHAZINE 25 MG/ML, 1ML IM PRN (02:30)
[2018-12-20] MEDS ORDERED: ONDANSETRON 2MG/ML, 2ML IVPush PRN (02:30)
[2018-12-20] MEDS ORDERED: ONDANSETRON ODT 4 MG PO PRN (02:30)
[2018-12-20] MEDS ORDERED: ACETAMINOPHEN 325 MG TABLET PO PRN (02:30)
[2018-12-20] MEDS ORDERED: BISACODYL 10 MG SUPP PR PRN (02:30)
[2018-12-20] MEDS ORDERED: POLYETHYLENE GLYCOL 17 GM PACKET PO PRN (02:30)
[2018-12-20] MEDS ORDERED: DOCUSATE 100 MG CAPSULE PO PRN (02:30)
[2018-12-20] MEDS ORDERED: morphine SULFATE 10 MG/ML, 1ML IVPush PRN (02:30)
--- NOTE | 2018-12-20 02:41 | NUR ---
REPORT GIVEN TO JOCELIN GUTIERREZ
[2018-12-20 02:58] LABS: FREE T4 (FREE THYROXINE) 1.14 ng/dL (0.76-1.46); HEMOGLOBIN A1C 6.1 % (4.2-6.3); THYROID STIMULATING HORMONE 1.88 mIU/L (0.358-3.740)
[2018-12-20] MEDS ORDERED: WARFARIN MODERAT DOSE PROTOCOL XX PRN (03:00)
[2018-12-20] MEDS ORDERED: METHOCARBAMOL 500 MG TABLET PO PRN (03:00)
[2018-12-20 03:08] VITALS: BP 135/76
[2018-12-20] MEDS ORDERED: ALBUTEROL SULFATE 2.5 MG/3 ML NPPB PRN (03:30)
[2018-12-20] MEDS: SODIUM CHLORIDE 0.9% 1,000 ML IV SCH ×2 (03:43→15:55)
[2018-12-20] MEDS: HEPARIN 5,000 UNITS/ML, 1ML SQ SCH ×2 (03:44→12:26)
[2018-12-20] MEDS: OXYcodone IR 5MG TABLET PO PRN ×3 (04:09→10:28)
[2018-12-20 04:12] LABS: MICROSCOPIC NOT IND
[2018-12-20 04:14] LABS: CULTURE INDICATED? NO
[2018-12-20 05:55] LABS: TROPONIN I < 0.015 ng/mL (0.000-0.045)
[2018-12-20] MEDS ORDERED: LEVOTHYROXINE 50 MCG TABLET PO SCH (06:00)
[2018-12-20 07:55] VITALS: BP 112/69
[2018-12-20] MEDS ORDERED: FAMOTIDINE 20 MG TABLET PO SCH (09:00)
[2018-12-20] MEDS ORDERED: CALCIUM/VITAMIN D3 250-125 TABLET PO SCH (09:00)
[2018-12-20] MEDS ORDERED: MAGNESIUM OXIDE 400 MG TABLET PO SCH (09:00)
[2018-12-20] MEDS ORDERED: ASCORBIC ACID 500 MG TABLET PO SCH (09:00)
[2018-12-20] MEDS ORDERED: DILTIAZEM 90 MG CAP.ER.12H PO SCH (09:00)
[2018-12-20] MEDS ORDERED: BUDESONIDE 0.5 MG/2 ML INHA NPPB SCH ×2 (09:00)
[2018-12-20] MEDS ORDERED: PREGABALIN 75 MG CAPSULE PO SCH (09:00)
[2018-12-20] MEDS ORDERED: CHOLECALCIFEROL 1,000 UNIT TABLET PO SCH (09:00)
[2018-12-20] MEDS ORDERED: CYANOCOBALAMIN 1,000 MCG TABLET PO SCH (09:00)
[2018-12-20] MEDS ORDERED: LACTOBACILLUS 1GM/ PACKET PO SCH (09:00)
[2018-12-20] MEDS: FERROUS SULFATE 325 MG TABLET PO SCH ×2 (09:07→17:00)
[2018-12-20] MEDS ORDERED: REGADENOSON 0.4 MG/5 ML SYRINGE ONE (09:41)
[2018-12-20 12:19] LABS: TROPONIN I < 0.015 ng/mL (0.000-0.045)
[2018-12-20] MEDS ORDERED: PREGABALIN 150 MG CAPSULE PO SCH (13:00)
[2018-12-20 13:30] LABS: ANION GAP 6 mmol/L (5-15); CALCIUM 8.6 mg/dL (8.5-10.1); CHLORIDE 105 mmol/L (98-107); CREATININE 1.02 mg/dL (0.55-1.02)
[2018-12-20 14:18] VITALS: BP 122/80
[2018-12-20] MEDS ORDERED: WARFARIN 5 MG TABLET PO-COUM ONE (18:00)
== END 2018-12-20 17:17 | disposition home or self-care (01) ==
LOC: ED 01:44 → EDIP 02:14 → INTOOBSV 02:14 → 5SO 02:56
PROVIDERS: ADMIT Internal Medicine; ATTEND Internal Medicine
DX: R07.9 Chest pain, unspecified (principal); E03.9 Hypothyroidism, unspecified; I48.0 Paroxysmal atrial fibrillation; E11.9 Type 2 diabetes mellitus without complications; I11.0 Hypertensive heart disease with heart failure; D64.9 Anemia, unspecified; E78.5 Hyperlipidemia, unspecified; E87.5 Hyperkalemia; F41.1 Generalized anxiety disorder; G89.29 Other chronic pain; K21.9 Gastro-esophageal reflux disease without esophagitis; N17.0 Acute kidney failure with tubular necrosis; Z79.01 Long term (current) use of anticoagulants; Z86.711 Personal history of pulmonary embolism; Z86.718 Personal history of other venous thrombosis and embolism; Z87.440 Personal history of urinary (tract) infections; Z90.710 Acquired absence of both cervix and uterus; Z98.1 Arthrodesis status
CPT/HCPCS: 36415; 71045; 78452; 80048; 80053; 81003; 83036; 83735; 83880; 84439; 84443; 84484; 85025; 85379; 85610; 93005; 93017; 94640; 96372; 96374; 96375; 96376; 97162; 97165; 99284; A9502; C9898; G0378; J1644; J2270; J2405; J2785; J7030; J7626

== ENCOUNTER 2019-01-09 19:30 | Emergency (ER) | payer MEDICARE ==
[~2019-01-09] VITALS: Ht 157.5 cm; Wt 81.1 kg
--- NOTE | 2019-01-09 20:11 | NUR ---
Pt presents for increasing SOB and L mid back pain since this AM. Pt states has hx of PE x 2 with similar sx and is concerned for same. Pt also states has L sided abd pain and nausea at this time. no vomiting. Fall with ecchymosis to LLE x 1.5 weeks.
[2019-01-09] MEDS ORDERED: MORPHINE SULFATE 4 MG/ML, 1ML ONE (20:21)
[2019-01-09] MEDS ORDERED: ONDANSETRON 2MG/ML, 2ML ONE (20:21)
[2019-01-09] MEDS ORDERED: OXYcodone IR 5MG TABLET PO ONE (20:30)
[2019-01-09 20:36] LABS: INTERNATIONAL NORMALIZED RATIO 1.17 (0.93-1.1); PROTHROMBIN TIME 12.2 Seconds (9.6-11.5)
[2019-01-09 20:38] LABS: ALBUMIN 3.6 g/dL (3.4-5.0); ANION GAP 7 mmol/L (5-15); CALCIUM 8.9 mg/dL (8.5-10.1); CHLORIDE 100 mmol/L (98-107)
[2019-01-09 20:44] LABS: ALANINE AMINOTRANSFERASE 40 U/L (12-78); ALKALINE PHOSPHATASE 107 U/L (45-117); BILIRUBIN,TOTAL 0.7 mg/dL (0.2-1.0); CREATININE 1.13 mg/dL (0.55-1.02); TOTAL PROTEIN 7.2 g/dL (6.4-8.2); TROPONIN I < 0.015 ng/mL (0.000-0.045)
[2019-01-09 20:46] LABS: MEAN CORPUSCULAR HEMOGLOBIN 26.6 pg (27.0-34.8); MEAN CORPUSCULAR HGB CONC 32.9 g/dL (32.4-35.8); MEAN CORPUSCULAR VOLUME 80.7 fL (80-100); MEAN PLATELET VOLUME 9.4 fL (7.4-10.4); PLATELET COUNT 220 x10^3/uL (130-400); RED BLOOD COUNT 5.21 x10^6/uL (3.82-5.3); RED CELL DISTRIBUTION WIDTH 25.5 % (9.6-15.2)
[2019-01-09] MEDS ORDERED: ONDANSETRON 2MG/ML, 2ML IVPush ONE (21:00)
[2019-01-09] MEDS ORDERED: MORPHINE SULFATE 4 MG/ML, 1ML IVPush ONE (21:00)
[2019-01-09 21:11] LABS: BASOPHILS # (AUTO) 0.03 x10^3/uL (0-0.1); BASOPHILS % (AUTO) 0 % (0-1); EOSINOPHILS # (AUTO) 0.03 x10^3/uL (0-0.4); EOSINOPHILS % (AUTO) 0 % (1-7); LYMPHOCYTES # (AUTO) 2.26 x10^3/uL (1-3.4); LYMPHOCYTES % (AUTO) 24 % (22-44); MD SCAN; MONOCYTES # (AUTO) 0.78 x10^3/uL (0.2-0.8); MONOCYTES % (AUTO) 8 % (2-9); NEUTROPHILS # (AUTO) 6.51 x10^3/uL (1.8-6.8); NEUTROPHILS % (AUTO) 68 % (42-75)
[2019-01-09] MEDS ORDERED: OMNIPAQUE 350 MG/ML, 100ML BOTTLE ONE (21:50)
[2019-01-09 22:19] VITALS: BP 105/54
== END 2019-01-09 22:45 | disposition home or self-care (01) ==
LOC: ED 20:26
DX: M54.6 Pain in thoracic spine (principal); R79.1 Abnormal coagulation profile; R06.02 Shortness of breath
CPT/HCPCS: 36415; 71046; 71275; 80053; 84484; 85025; 85610; 85730; 93005; 99284; J2405; Q9967; 99283

== ENCOUNTER 2019-01-20 09:54 | Emergency (ER) | payer MEDICARE ==
[~2019-01-20] VITALS: Ht 154.9 cm; Wt 84.0 kg
[2019-01-20 10:06] VITALS: BP 149/87
--- NOTE | 2019-01-20 10:25 | NUR ---
Assumed care of patient. C/O LLE pain and erythema. Seen in ED last week for the same, but patient reports her condition is not improving. Will continue to monitor.
[2019-01-20] MEDS ORDERED: OXYcodone/APAP 10/325MG TABLET ONE (10:28)
[2019-01-20] MEDS ORDERED: OXYcodone/APAP 10/325MG TABLET PO ONE (10:30)
--- NOTE | 2019-01-20 10:45 | NUR ---
US at bedside. Percocet admin.
[2019-01-20 11:18] LABS: MEAN CORPUSCULAR HEMOGLOBIN 27.1 pg (27.0-34.8); MEAN CORPUSCULAR HGB CONC 32.9 g/dL (32.4-35.8); MEAN CORPUSCULAR VOLUME 82.3 fL (80-100); MEAN PLATELET VOLUME 8.6 fL (7.4-10.4); PLATELET COUNT 306 x10^3/uL (130-400); RED BLOOD COUNT 4.72 x10^6/uL (3.82-5.3); RED CELL DISTRIBUTION WIDTH 24.7 % (9.6-15.2)
[2019-01-20 11:20] LABS: ALBUMIN 3.3 g/dL (3.4-5.0); ANION GAP 5 mmol/L (5-15); CALCIUM 8.8 mg/dL (8.5-10.1); CHLORIDE 112 mmol/L (98-107); INTERNATIONAL NORMALIZED RATIO 1.68 (0.93-1.1); PROTHROMBIN TIME 17.3 Seconds (9.6-11.5)
[2019-01-20 11:38] LABS: BASOPHILS # (AUTO) 0.03 x10^3/uL (0-0.1); BASOPHILS % (AUTO) 1 % (0-1); EOSINOPHILS % (AUTO) 2 % (1-7); LYMPHOCYTES # (AUTO) 1.37 x10^3/uL (1-3.4); LYMPHOCYTES % (AUTO) 21 % (22-44); MD MORPH REVIEW ONLY; MONOCYTES # (AUTO) 0.37 x10^3/uL (0.2-0.8); MONOCYTES % (AUTO) 6 % (2-9); NEUTROPHILS # (AUTO) 4.78 x10^3/uL (1.8-6.8); NEUTROPHILS % (AUTO) 72 % (42-75)
[2019-01-20 11:39] LABS: <PLATELET ESTIMATE> ADEQUATE; ANISOCYTOSIS 1+; LARGE PLATELETS 1+; MICROCYTOSIS 1+; OVALOCYTES 1+; POLYCHROMASIA 1+
--- NOTE | 2019-01-20 11:55 | NUR ---
Resting in [facility]. No needs.
--- NOTE | 2019-01-20 13:08 | NUR ---
Provided with snacks and drinks. Awaiting response from [facility].
[2019-01-20] MEDS ORDERED: ENOXAPARIN 80 MG/0.8 ML ONE (13:24)
[2019-01-20] MEDS ORDERED: ENOXAPARIN 80 MG/0.8 ML SQ ONE (13:30)
--- NOTE | 2019-01-20 13:32 | NUR ---
Patient/Caregiver given discharge instructions and they have confirmed that they understand the instructions. Patient ambulatory with steady gait.
== END 2019-01-20 13:33 | disposition home or self-care (01) ==
LOC: ED 10:36
DX: L03.116 Cellulitis of left lower limb (principal); J44.9 Chronic obstructive pulmonary disease, unspecified; I50.9 Heart failure, unspecified; K21.9 Gastro-esophageal reflux disease without esophagitis; E03.9 Hypothyroidism, unspecified; I11.0 Hypertensive heart disease with heart failure; E11.9 Type 2 diabetes mellitus without complications; I48.91 Unspecified atrial fibrillation; I95.9 Hypotension, unspecified
CPT/HCPCS: 36415; 71045; 80048; 82040; 85025; 85610; 85730; 93971; 96372; 99284; J1650

== ENCOUNTER 2019-03-15 04:07 | Emergency (ER) | payer MEDICARE ==
[~2019-03-15] VITALS: Ht 154.9 cm; Wt 82.3 kg
--- NOTE | 2019-03-15 04:30 | NUR ---
PT HAS BEEN ON ANTIBIOTICS FOR LEFT LOWER LEG CELLULITIS AND UTI. PT FEELS CELLULITIS AND UTI ARE NOT IMPROVING. PT HAS FIBROMYALGIA AND IS JUST HAVING GENERALIZED PAIN, HAS NOT TAKEN PAIN MEDICATION TODAY. VSS. UPDATED ON POC.
[2019-03-15] MEDS ORDERED: OXYcodone/APAP 5/325MG TABLET ONE (04:46)
[2019-03-15] MEDS ORDERED: OXYcodone/APAP 5/325MG TABLET PO ONE (05:00)
[2019-03-15 05:10] LABS: BASOPHILS # (AUTO) 0.03 x10^3/uL (0-0.1); BASOPHILS % (AUTO) 0 % (0-1); EOSINOPHILS # (AUTO) 0.15 x10^3/uL (0-0.4); EOSINOPHILS % (AUTO) 2 % (1-7); LYMPHOCYTES % (AUTO) 40 % (22-44); MD NO; MEAN CORPUSCULAR HEMOGLOBIN 27.7 pg (27.0-34.8); MEAN CORPUSCULAR HGB CONC 32.3 g/dL (32.4-35.8); MEAN CORPUSCULAR VOLUME 85.6 fL (80-100); MEAN PLATELET VOLUME 9.4 fL (7.4-10.4); MONOCYTES # (AUTO) 0.53 x10^3/uL (0.2-0.8); MONOCYTES % (AUTO) 9 % (2-9); NEUTROPHILS # (AUTO) 3.08 x10^3/uL (1.8-6.8); NEUTROPHILS % (AUTO) 49 % (42-75); PLATELET COUNT 244 x10^3/uL (130-400); RED BLOOD COUNT 5.23 x10^6/uL (3.82-5.3); RED CELL DISTRIBUTION WIDTH 18.1 % (9.6-15.2)
[2019-03-15 05:21] LABS: ALBUMIN 3.7 g/dL (3.4-5.0); ANION GAP 4 mmol/L (5-15); CALCIUM 9.2 mg/dL (8.5-10.1); CHLORIDE 109 mmol/L (98-107); CREATININE 1.18 mg/dL (0.55-1.02)
--- NOTE | 2019-03-15 05:30 | NUR ---
URINE SAMPLE COLLECTED AND SENT. VSS.
[2019-03-15 05:44] LABS: MICROSCOPIC NOT IND
[2019-03-15 05:46] LABS: CULTURE INDICATED? NO
--- NOTE | 2019-03-15 06:16 | NUR ---
PT RESTING ON [facility]. VSS.
--- NOTE | 2019-03-15 06:57 | NUR ---
REPORT GIVEN TO KERMIT MONREAL.
--- NOTE | 2019-03-15 06:59 | NUR ---
DR. ALLISON AND KAMINI TERESA ARE AT THE BEDSIDE. PT. WILL BE DISCHARGED.
--- NOTE | 2019-03-15 07:19 | NUR ---
PT. WAS GIVEN DISCHARGE INSTRUCTIONS WITH UNDERSTANDING VERBALIZED ALONG WITH WILLINGNESS TO COMPLY. PT.'S VITALS ARE STABLE. PT. WAS AMBULATORY TO THE DISCHARGE DESK.
[2019-03-15 07:20] VITALS: BP 132/61
== END 2019-03-15 07:23 | disposition home or self-care (01) ==
LOC: ED 07:15
DX: L03.116 Cellulitis of left lower limb (principal); N18.2 Chronic kidney disease, stage 2 (mild); Z87.39 Personal history of other diseases of the musculoskeletal system and connective tissue; E11.9 Type 2 diabetes mellitus without complications; Z88.0 Allergy status to penicillin; J44.9 Chronic obstructive pulmonary disease, unspecified
CPT/HCPCS: 36415; 80048; 81003; 82040; 83605; 85025; 99284

== ENCOUNTER → 2019-08-22 | Outpatient (CLI) | payer MEDICARE ==
[~2019-08-22] MED LIST changes: +ACET500T64 PO; +CRAN300T PO; +CYAN-27 PO; -CYAN10005 PO; -DILT180C PO; +DILT180C76 PO; +DOCU-131 PO; -HYDR473S55 PO; +HYDR473S60 PO; +METF500T17 PO; +MONT10TA9 PO; +POLY17PO5 PO; +RANI300T3 PO; +TIOT4MIS5 INH; +TRAM50TA2 PO
== END | disposition home or self-care (01) ==
LOC: CFH 08:49
PROVIDERS: ATTEND Nurse Practitioner
DX: Z12.31 Encounter for screening mammogram for malignant neoplasm of breast (principal); M48.061 Spinal stenosis, lumbar region without neurogenic claudication
CPT/HCPCS: 72148; 76700; 77063; 77067

== ENCOUNTER 2019-11-16 01:12 | Emergency (ER) | payer MEDICARE ==
[~2019-11-16] VITALS: Ht 154.9 cm; Wt 87.1 kg
--- NOTE | 2019-11-16 01:22 | NUR ---
PT. TO ED WITH C/O FEELING OF A PILL BEING STUCK. STATES TOOK A HANDFUL OF PILLS AND THEY WENT DOWN WRONG. PT. COUGHING; STATES DID COUGH 1 PILL UP. PT. WITH MILD RESPIRATORY DISTRESS. SPAKING ONLY IN A FEW WORD SENTENCES. AUDIBLE WHEEZING. PT. IS REFUSING EKG. KAMINI RICHARDSON IN TO EVAL PT. AND DISCUSS POC. DEBRA AND THIS RN DISCUSSED IMPORTANCE OF EKG WITH PT; STILL REFUSING. CONTINUOUS PULSE OX APPLIED. FAMILY AT FOR SUPPORT. RA SAT 95%. CALL LIGHT IN REACH.
--- NOTE | 2019-11-16 01:28 | NUR ---
FREQUENT NON-PRODUCTIVE COUGH.
[2019-11-16] MEDS ORDERED: ALBUTEROL/IPRATROPIUM 2.5MG/0.5MG, 3 ML NPPB ONE (01:30)
[2019-11-16] MEDS ORDERED: ALBUTEROL/IPRATROPIUM 2.5MG/0.5MG, 3 ML ONE (01:34)
[2019-11-16] MEDS ORDERED: ALBUTEROL SULFATE 2.5 MG/3 ML NPPB ONE (02:00)
[2019-11-16 02:51] VITALS: BP 118/54
[2019-11-16] MEDS ORDERED: DEXAMETHASONE 4 MG TABLET ONE (03:23)
[2019-11-16] MEDS ORDERED: DEXAMETHASONE 4 MG TABLET PO ONE (03:30)
== END 2019-11-16 04:23 | disposition home or self-care (01) ==
LOC: ED 03:34
DX: J45.21 Mild intermittent asthma with (acute) exacerbation (principal); R05 Cough; R07.2 Precordial pain; I11.0 Hypertensive heart disease with heart failure; I50.9 Heart failure, unspecified; K21.9 Gastro-esophageal reflux disease without esophagitis; E78.5 Hyperlipidemia, unspecified; I48.91 Unspecified atrial fibrillation; E11.9 Type 2 diabetes mellitus without complications; I73.9 Peripheral vascular disease, unspecified; M79.7 Fibromyalgia; Z90.49 Acquired absence of other specified parts of digestive tract
CPT/HCPCS: 71046; 94640; 99284; J7613; J7620; 99283

== ENCOUNTER 2020-01-12 12:40 | Emergency (ER) | payer MEDICARE ==
[~2020-01-12] VITALS: Ht 154.9 cm; Wt 87.6 kg
[~2020-01-12 12:40] MED LIST changes: -GUAI400T66 PO; +GUAI400T81 PO; +MONT10TA11 PO; -MONT10TA9 PO; +SIMV40TA20 PO; -SIMV40TA3 PO
--- NOTE | 2020-01-12 13:08 | NUR ---
PT CAME IN CO OF SOB, COUGH, CHEST TIGHTNESS, WEAKNESS. DENIES NV, CHILLS, FEVER. SAYS SHE HAD DIARHEA ABOU A WEEK AGO BUT HAS SINCE THEN RESOLVED. PLACED PT ON 2 LITERS 02. DENIES HX OF COPD AND PNEUMONIA. PT HOOKED UP TO [facility]. PT WHEELCHAIRED IN BECAUSE SHE BROKE YOUR FOOT 5 WEEKS AGO AND SHE JUST TOOK OFF THE BOOT. ALSO HAS HX OF MRSA. BLANKET PROVIDED.
[2020-01-12] MEDS ORDERED: ALBUTEROL/IPRATROPIUM 2.5MG/0.5MG, 3 ML NPPB ONE (13:30)
--- NOTE | 2020-01-12 13:32 | NUR ---
RT attempted at this time and this MT forwarded to [facility].
[2020-01-12] MEDS ORDERED: ALBUTEROL/IPRATROPIUM 2.5MG/0.5MG, 3 ML ONE (13:45)
[2020-01-12 13:52] LABS: BASOPHILS # (AUTO) 0.03 x10^3/uL (0-0.1); BASOPHILS % (AUTO) 0 % (0-1); EOSINOPHILS # (AUTO) 0.06 x10^3/uL (0-0.4); EOSINOPHILS % (AUTO) 1 % (1-7); LYMPHOCYTES # (AUTO) 1.33 x10^3/uL (1-3.4); LYMPHOCYTES % (AUTO) 13 % (22-44); MD NO; MEAN CORPUSCULAR HEMOGLOBIN 28.6 pg (27.0-34.8); MEAN CORPUSCULAR HGB CONC 33.2 g/dL (32.4-35.8); MEAN CORPUSCULAR VOLUME 86.2 fL (80-100); MEAN PLATELET VOLUME 9.4 fL (7.4-10.4); MONOCYTES # (AUTO) 0.59 x10^3/uL (0.2-0.8); MONOCYTES % (AUTO) 6 % (2-9); NEUTROPHILS # (AUTO) 8.11 x10^3/uL (1.8-6.8); NEUTROPHILS % (AUTO) 80 % (42-75); PLATELET COUNT 226 x10^3/uL (130-400); RED BLOOD COUNT 5.13 x10^6/uL (3.82-5.3); RED CELL DISTRIBUTION WIDTH 15.1 % (9.6-15.2)
[2020-01-12 14:01] LABS: ALBUMIN 3.7 g/dL (3.4-5.0); ANION GAP 8 mmol/L (5-15); CALCIUM 9.2 mg/dL (8.5-10.1); CHLORIDE 109 mmol/L (98-107)
--- NOTE | 2020-01-12 14:05 | NUR ---
PT RESTING IN [facility]. CALL LIGHT WITH REACH. NAD.
--- NOTE | 2020-01-12 14:38 | NUR ---
PT RESTING IN [facility]. MEDICATD PER DEC. EDUCATED ON PLAN OF CARE -
[2020-01-12 15:24] VITALS: BP 119/51
--- NOTE | 2020-01-12 15:25 | NUR ---
PT RESTING IN [facility]. REPORTS IMPROVEMENT IN BREATHING. NO NEEDS AT THIS TIME
== END 2020-01-12 16:31 | disposition home or self-care (01) ==
LOC: ED 14:27
DX: J98.01 Acute bronchospasm (principal); R06.02 Shortness of breath; I11.0 Hypertensive heart disease with heart failure; I50.9 Heart failure, unspecified; J44.9 Chronic obstructive pulmonary disease, unspecified; I48.91 Unspecified atrial fibrillation; E11.9 Type 2 diabetes mellitus without complications; K21.9 Gastro-esophageal reflux disease without esophagitis; E03.9 Hypothyroidism, unspecified; Z90.10 Acquired absence of unspecified breast and nipple; Z90.89 Acquired absence of other organs
CPT/HCPCS: 36415; 71045; 80048; 82040; 83605; 85025; 93005; 99285; J7512